=== PATIENT | female | born 2000 | race American Indian/Alaskan Native ===

== ENCOUNTER 2020-11-24 19:08 | Emergency (ER) | payer BC ==
[2020-11-24] MEDS ORDERED: ACETAMINOPHEN 325 MG TAB PO ONE (19:31)
[2020-11-24] MEDS ORDERED: IBUPROFEN 600 MG TAB PO ONE (19:31)
--- NOTE | 2020-11-24 20:19 | XRay Report ---
3 VIEWS LEFT SECOND FINGER INDICATION / CLINICAL INFORMATION: Finger trauma - pain COMPARISON: None available. FINDINGS: BONES / JOINT(S): No acute fracture or subluxation. No significant arthritis. SOFT TISSUES: No significant abnormality. ADDITIONAL FINDINGS: None. Signer Name: Sean Cespedes MD Signed: 11/24/2020 8:15 PM Workstation Name: [id number]
[2020-11-24] MEDS ORDERED: NEOMY 3.5 MG/BACIT 400 UNITS/POLY B 5000 UNITS/GM OINT PACKET TP ONE (20:38)
--- NOTE | 2020-11-24 20:42 | Emergency Department Report ---
ED Upper Extremity Inj HPI - General Chief Complaint: Extremity Injury, Upper Stated Complaint: SMASHED FINGER IN DOOR Source: patient Mode of arrival: Ambulatory Limitations: No Limitations - History of Present Illness Initial Comments: Patient is a 20-year-old -[place] female with no past medical history presents to the ED with complaint of acute onset persistent severe distal left index finger pain with bleeding laceration and partial nail avulsion after she accidentally shut her car door on her left index finger causing extensive injury about 1 hour prior to arrival in the ED. Patient states that the pain is worse with palpation or any active range of motion of the left index finger. Patient also states that she is up-to-date with her tetanus vaccination having received her last tetanus vaccination 4 years ago. Patient denies head or neck injuries, nausea, vomiting, dizziness, numbness and tingling or weakness of left hand all left index finger. MD Complaint: Injury to:: left, finger (Distal left index finger injury with nail avulsion) -: Sudden, hour(s) (1) Other Extremity Injury: Fingers: Left (Distal left index finger injury with partial nail avulsion) Other Injuries: none Place: home Severity scale (0 -10): 8 Improves With: none Worsens With: movement of extremity Context: direct blow (Distal left index finger short on the car door), injury Associated Symptoms: denies other symptoms. denies: weakness, numbness, neck pain, suspects foreign body, nausea/vomiting, heard/felt popping sensat - Related Data Previous Rx's Medication Instructions Recorded Last Taken Type Acetaminophen/Codeine [Tylenol 1 tab PO Q6H PRN #10 tab 11/24/20 Unknown Rx /Codeine # 3 tab] Ibuprofen [Motrin] 600 mg PO Q8H PRN #30 tablet 11/24/20 Unknown Rx cephALEXin [Keflex] 500 mg PO Q6HR #30 capsule 11/24/20 Unknown Rx Allergies Allergy/AdvReac Type Severity Reaction Status Date / Time No Known Allergies Allergy Verified 11/24/20 20:02 ED Review of Systems ROS: Stated complaint: SMASHED FINGER IN DOOR Other details as noted in HPI Constitutional: denies: chills, fever Eyes: denies: eye pain, eye discharge, vision change ENT: denies: ear pain, throat pain Respiratory: denies: cough, shortness of breath, wheezing Cardiovascular: denies: chest pain, palpitations Endocrine: no symptoms reported Gastrointestinal: denies: abdominal pain, nausea, diarrhea Genitourinary: denies: urgency, dysuria, discharge Musculoskeletal: joint swelling (Distal left index finger swelling), arthralgia (Distal left index finger injury with partial nail avulsion). denies: back pain Skin: other (Distal left index finger laceration with partial nail avulsion). denies: rash, lesions Neurological: denies: headache, weakness, paresthesias Psychiatric: denies: anxiety, depression Hematological/Lymphatic: denies: easy bleeding, easy bruising ED Past Medical Hx - Medications Home Medications: Home Medications Medication Instructions Recorded Confirmed Last Taken Type Acetaminophen/Codeine [Tylenol 1 tab PO Q6H PRN #10 tab 11/24/20 Unknown Rx /Codeine # 3 tab] Ibuprofen [Motrin] 600 mg PO Q8H PRN #30 tablet 11/24/20 Unknown Rx cephALEXin [Keflex] 500 mg PO Q6HR #30 capsule 11/24/20 Unknown Rx ED Physical Exam - General Limitations: No Limitations General appearance: alert, in no apparent distress - Head Head exam: Present: atraumatic, normocephalic, normal inspection - Eye Eye exam: Present: normal appearance, PERRL, EOMI Pupils: Present: normal accommodation - ENT ENT exam: Present: normal exam, normal orophraynx, mucous membranes moist, TM's normal bilaterally, normal external ear exam - Neck Neck exam: Present: normal inspection, full ROM - Respiratory Respiratory exam: Present: normal lung sounds bilaterally. Absent: respiratory distress, wheezes, rales, rhonchi, stridor, chest wall tenderness, accessory muscle use, decreased breath sounds - Cardiovascular Cardiovascular Exam: Present: regular rate, normal rhythm, normal heart sounds. Absent: systolic murmur, diastolic murmur, rubs, gallop - GI/Abdominal GI/Abdominal exam: Present: soft, normal bowel sounds. Absent: tenderness, guarding, rebound, hyperactive bowel sounds, hypoactive bowel sounds, organomegaly - Extremities Exam Extremities exam: Present: normal inspection, full ROM, tenderness (Palpable severe tenderness of distal left index finger due to laceration and partial nail avulsion), normal capillary refill, joint swelling (Mild swelling) - Back Exam Back exam: Present: normal inspection, full ROM. Absent: tenderness, CVA tenderness (R), CVA tenderness (L), muscle spasm, paraspinal tenderness, vertebral tenderness - Neurological Exam Neurological exam: Present: alert, oriented X3, CN II-XII intact, normal gait, reflexes normal - Psychiatric Psychiatric exam: Present: normal affect, normal mood - Skin Skin exam: Present: warm, dry, intact, normal color. Absent: rash ED Course Vital Signs 11/24/20 22:40 Pulse Rate 88 Respiratory 12 Rate Blood Pressure 114/68 [Left] O2 Sat by Pulse 99 Oximetry ED Medical Decision Making - Radiology Data Radiology results: report reviewed, image reviewed [facility] [address] [place] [address] XRay Report Signed Patient: CRISS LUNDBERG MR#: [id number] : 2000 Acct:[id number] Age/Sex: 20 / F ADM Date: 11/24/20 Loc: ED Attending Dr: Ordering Physician: VANDANA MARX Date of Service: 11/24/20 Procedure(s): XR finger(s) 2+V LT Accession Number(s): [id number] cc: VANDANA MARX Fluoro Time In Minutes: 3 VIEWS LEFT SECOND FINGER INDICATION / CLINICAL INFORMATION: Finger trauma - pain COMPARISON: None available. FINDINGS: BONES / JOINT(S): No acute fracture or subluxation. No significant arthritis. SOFT TISSUES: No significant abnormality. ADDITIONAL FINDINGS: None. Signer Name: Sean Trotter MD Signed: 11/24/2020 8:15 PM Workstation Name: [id number] Transcribed By: SB Dictated By: SEAN TROTTER MD Electronically Authenticated By: SEAN TROTTER MD Signed Date/Time: 11/24/202014 DD/ 13 TD/TT: Print Cancel - Medical Decision Making This is a 20-year-old -[place] female with no past medical history presents to the ED with complaint of acute onset persistent severe distal left index finger pain with bleeding laceration and partial nail avulsion after she accidentally shut her car door on her left index finger causing extensive injury about 1 hour prior to arrival in the ED. Patient states that the pain is worse with palpation or any active range of motion of the left index finger. Patient also states that she is up-to-date with her tetanus vaccination having received her last tetanus vaccination 4 years ago. In the ED, patient is alert and oriented x3 and is not in any distress. Patient however appears to be in significant pain. Patient was treated for pain in the ED and left index finger x-ray showed no acute fractures or subluxations. Patient's distal left index finger laceration was cleaned extensively with normal saline, Betadine solution and topical let gel solution was applied for anesthesia. Neosporin ointment was also applied and the wound was dressed appropriately. Patient was discharged home on pain medications and prophylactic antibiotics and was advised to follow- up with her primary care physician in 5 to 7 days for reevaluation or return to the ED immediately if symptoms get worse. - Differential Diagnosis Finger fracture; finger injury; nail avulsion; laceration; finger contusion Critical care attestation.: If time is entered above; I have spent that time in minutes in the direct care of this critically ill patient, excluding procedure time. ED Disposition Clinical Impression: Contusion of left index finger with damage to nail, initial encounter Sprain of left index finger Qualifiers: Encounter type: initial encounter Sprain of finger site: interphalangeal joint Qualified Code(s): S63.631A - Sprain of interphalangeal joint of left index finger, initial encounter Laceration of left index finger w/o foreign body with damage to nail Qualifiers: Encounter type: initial encounter Qualified Code(s): S61.311A - Laceration without foreign body of left index finger with damage to nail, initial encounter Traumatic avulsion of nail plate of finger Qualifiers: Encounter type: initial encounter Qualified Code(s): S61.309A - Unspecified open wound of unspecified finger with damage to nail, initial encounter Disposition: HOME / SELF CARE / HOMELESS Is pt being admited?: No Does the pt Need Aspirin: No Condition: Stable Instructions: Subungual Hematoma, [id number], Finger Sprain, Adult, [id number], Laceration Care, Adult, [id number], Nail Bed Injury, [id number], Nonsutured Laceration Care Additional Instructions: Take medications with food as needed for pain, take the antibiotic prophylactically as advised until finished. Follow-up with your primary care physician in 5 to 7 days for reevaluation. Return to the ED immediately if symptoms get worse. Prescriptions: cephALEXin [Keflex] 500 mg PO Q6HR #30 capsule Ibuprofen [Motrin] 600 mg PO Q8H PRN #30 tablet PRN Reason: Pain Acetaminophen/Codeine [Tylenol /Codeine # 3 tab] 1 tab PO Q6H PRN #10 tab PRN Reason: Pain , Severe (7-10) Referrals: [facility] [Provider Group] - 7-10 days Time of Disposition: 20:48 Print Language: MALDIVIAN
[2020-11-24] MEDS ORDERED: LET TOPICAL (LIDOCAINE/EPINEPHRINE/TETRACAINE) 3 ML TP ONE (20:49)
[2020-11-24 22:41] VITALS: BP 114/68
== END 2020-11-24 22:42 | disposition home or self-care (01) ==
LOC: ED 19:08
DX: S63.631A Sprain of interphalangeal joint of left index finger, initial encounter (principal); S61.311A Laceration without foreign body of left index finger with damage to nail, initial encounter; X58.XXXA Exposure to other specified factors, initial encounter; Y93.89 Activity, other specified; Y92.89 Other specified places as the place of occurrence of the external cause; Y99.8 Other external cause status
CPT/HCPCS: 73140; 99283; A6250